=== PATIENT | female | born 1970 | race Caucasian/White ===

== ENCOUNTER → 2021-07-12 | Outpatient (CLI) | payer OTHER ==
[~2021-07-12] MED LIST: ATOR40TA PO; Bentyl20 MG PO; Cymbalta30 MG PO; DULO30 PO; EUTHYROX125 MCG PO; GABA100 PO; METF500C PO; OMEPRAZOLE20 MG PO; Prilosec Otc20 MG PO; Synthroid125 MCG PO; TRAZ50 PO
[2021-07-12 15:10] LABS: BASOPHILS ABSOLUTE AUTO 0.04 K/mm3 (0.00-0.23); BASOPHILS PERCENT AUTO 1 % (0-2); EOSINOPHILS PERCENT AUTO 3 % (0-6); Hematocrit 39.6 % (33.0-51.0); Hemoglobin 12.8 g/dL (11.5-16.0); IMMATURE GRAN ABSOLUTE AUTO 0.03 K/mm3 (0.00-0.10); IMMATURE GRAN PERCENT AUTO 0 % (0-1); LYMPHOCYTES ABSOLUTE AUTO 2.96 K/mm3 (0.84-5.20); LYMPHOCYTES PERCENT AUTO 43 % (21-46); MONOCYTES ABSOLUTE AUTO 0.47 K/mm3 (0.16-1.47); MONOCYTES PERCENT AUTO 7 % (4-13); Mean Corpuscular HGB 28.3 pg (26.0-34.0); Mean Corpuscular HGB Conc 32.3 g/dL (31.5-36.5); Mean Corpuscular Volume 88 fL (80-100); Mean Platelet Volume 10.9 fL (9.1-12.4); NEUTROPHILS ABSOLUTE AUTO 3.18 K/mm3 (1.96-9.15); NEUTROPHILS PERCENT AUTO 46 % (41-73); Platelet Count 332 K/mm3 (150-400); RDW Coefficient Variation 13.4 % (11.7-14.2); RDW Standard Deviation 42.8 fL (35.1-46.3); Red Blood Cell Count 4.52 M/mm3 (3.80-5.20); White Blood Cell Count 6.88 K/mm3 (4.00-11.30)
[2021-07-12 15:41] LABS: Alanine Aminotransfer (ALT/SGP 22 U/L (12-78); Albumin, Blood 3.7 g/dL (3.4-5.0); Albumin/Globulin Ratio 0.8 (0.8-1.8); Alk Phos 94 U/L (50-136); Anion Gap 6 mmol/L (6-16); Aspartate Aminotrans (AST/SGOT 19 U/L (12-37); Bilirubin, Total 0.2 mg/dL (0.1-1.0); Blood Urea Nitrogen 16 mg/dL (8-24); Bun/Creatinine Ratio 26.5 (12.0-20.0); CHOL/HDL RATIO 4.9; CO2, Blood 24 mmol/L (21-32); Calcium, Blood 9.5 mg/dL (8.5-10.1); Chloride, Blood 109 mmol/L (98-108); Cholesterol 190 mg/dL (50-200); Globulin, Blood 4.4 g/dL (2.2-4.0); Glomerular Filtration Rate >60 (60-); Glucose, Blood 130 mg/dL (70-99); HDL Cholesterol 39 mg/dL (>39); LDL/HDL RATIO Unable to Calculate; Low Density Lipoprotein Chol Unable to Calculate mg/dL (0-110); Potassium, Blood 3.8 mmol/L (3.5-5.5); Sodium, Blood 139 mmol/L (136-145); Total Protein, Blood 8.1 g/dL (6.4-8.2); Triglycerides 487 mg/dL (30-160); Very Low Density Lipoprot Chol Unable to Calculate mg/dL (6-32)
== END | disposition home or self-care (01) ==
LOC: LAB SHORT 12:36 → LAB 12:36
PROVIDERS: Family Medicine
DX: E03.9 Hypothyroidism, unspecified (principal); E78.2 Mixed hyperlipidemia; D50.9 Iron deficiency anemia, unspecified
CPT/HCPCS: 80053; 80061; 84443; 85025

== ENCOUNTER 2021-08-12 06:12 | Day surgery (SDC) | payer OTHER ==
[~2021-08-12] VITALS: Ht 167.6 cm; Wt 84.2 kg
[2021-08-12] MEDS ORDERED: LEVSOD137 (07:01)
[2021-08-12] MEDS ORDERED: Glucophage 850850 MG (07:02)
--- NOTE | 2021-08-12 07:44 | NUR ---
08/12/21 0744 Rosemary Rutherford BUPIVACAINE 0.5% 50MLS MIXED WITH EPI 0.25 ML PER ORDER TO MAKE BUPIVACAINE 0.5% 1:200,000 FOR INJECTION AT [facility] BY DR. SAM. MULITDOSE VIAL, DIVIDED IN OR BY RN. 30 MLS BUPIVACAINE 0.5% 1:200,000 INJECTED AT OPSITE BY DR SAM FOR PAIN CONTROL.
== END 2021-08-12 09:35 | disposition home or self-care (01) ==
LOC: ORSCSDS 06:12
PROVIDERS: Podiatrist Foot & Ankle Surgery
PROC: 0SGN04Z Fusion of Left Metatarsal-Phalangeal Joint with Internal Fixation Device, Open Approach (ICD-10-PCS; principal; 2021-08-12 07:30)
DX: M20.5X2 Other deformities of toe(s) (acquired), left foot (principal); M25.872 Other specified joint disorders, left ankle and foot; I10 Essential (primary) hypertension; E11.9 Type 2 diabetes mellitus without complications; E03.9 Hypothyroidism, unspecified; Z79.84 Long term (current) use of oral hypoglycemic drugs; Z79.899 Other long term (current) drug therapy
CPT/HCPCS: 82947; A9270; C1713; J0171; J1100; J2250; J2405; J2704; J3010; J3370; J7120

== ENCOUNTER 2023-07-06 09:31 | Day surgery (SDC) | payer OTHER ==
[~2023-07-06] VITALS: Ht 167.6 cm; Wt 80.6 kg
[~2023-07-06 09:31] MED LIST changes: +ERGO400; +EZALLOR SPRINKL20 MG; +FENO48; +FERSU300; +Glucophage 850850 MG; +LEVSOD137; +PRAZ2; +TOPI50; +TRAM50; +VALP250; +VENL37.5ER
--- NOTE | 2023-07-06 10:53 | NUR ---
07/06/23 1053 Mar Gamino 1MG OF EPI (1MG/ML) ADDED TO THE FIRST BAG OF LACTATED RINGER FOR IRRIGATION AT THE [facility] BY DR SAM.
--- NOTE | 2023-07-06 12:16 | NUR ---
07/06/23 1216 COOPER REEVES PAIN 04/19. FENTANYL 25MCG TO BE GIVEN.
[2023-07-06 13:06] VITALS: BP 119/70
== END 2023-07-06 13:30 | disposition home or self-care (01) ==
LOC: ORSCSDS 09:31
PROVIDERS: Podiatrist Foot & Ankle Surgery
PROC: 0SBF4ZZ Excision of Right Ankle Joint, Percutaneous Endoscopic Approach (ICD-10-PCS; principal; 2023-07-06 10:30)
PROC: 0MQQ0ZZ Repair Right Ankle Bursa and Ligament, Open Approach (ICD-10-PCS; principal; 2023-07-06 10:30)
DX: M25.371 Other instability, right ankle (principal); M24.871 Other specific joint derangements of right ankle, not elsewhere classified; E11.9 Type 2 diabetes mellitus without complications; E03.9 Hypothyroidism, unspecified; E78.5 Hyperlipidemia, unspecified; I10 Essential (primary) hypertension; K21.9 Gastro-esophageal reflux disease without esophagitis; F41.8 Other specified anxiety disorders; F31.9 Bipolar disorder, unspecified; J45.909 Unspecified asthma, uncomplicated; Z79.899 Other long term (current) drug therapy; Z79.84 Long term (current) use of oral hypoglycemic drugs
CPT/HCPCS: 82947; A9270; C1713; J0171; J1100; J2001; J2250; J2405; J2704; J3010; J7120